=== PATIENT | female | born 1990 | race Caucasian/White ===

== ENCOUNTER 2016-11-21 11:34 | Inpatient (IN) ==
[2016-11-21 11:58] LABS: Bilirubin,Urine Negative (Negative); Blood,Urine Negative (Negative); Clarity,Urine Clear (Clear); Color,Urine Yellow (Yellow); Glucose,Urine (UA) Normal (Normal); Ketones,Urine Negative (Negative); Leukocyte Esterase,Urine Negative (Negative); Nitrite,Urine Negative (Negative); Protein,Urine Negative (Neg-Trace); Specific Gravity,Urine 1.015 (1.010-1.025); Urobilinogen,Urine Normal (Normal)
[2016-11-21 12:03] LABS: Amphetamine Screen,Urine Negative ng/mL (Cutoff=1000); Barbiturate Screen,Urine Negative ng/mL (Cutoff=200); Benzodiazepines Screen,Urine Negative ng/mL (Cutoff=200); Cannabinoid Screen,Urine Negative ng/mL (Cutoff = 50); Cocaine Screen,Urine Negative ng/mL (Cutoff= 300); Opiate Screen,Urine Negative ng/mL (Cutoff=300); Phencyclidine Screen,Urine Negative ng/mL (Cutoff=25)
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
[2016-11-21 12:19] LABS: Acetaminophen < 1.0 mcg/mL (10-30); Ethanol < 10 mg/dL (0-10); Salicylate < 5.0 mg/dL (15-30)
[2016-11-21] MEDS ORDERED: Haloperidol Lactate 5 MG/ML VIAL IM PRN (20:58)
[2016-11-21] MEDS ORDERED: MOM Conc 10 ML UD.LIQ PO PRN (20:58)
[2016-11-21] MEDS ORDERED: *HR* LORazepam 2 MG/ML VIAL IM PRN (20:58)
[2016-11-21] MEDS ORDERED: *HR* LORazepam 1 MG TABLET PO PRN (20:58)
[2016-11-21] MEDS ORDERED: Mag Hydrox/Al Hydrox/Simeth 30 ML UDC PO PRN (20:58)
[2016-11-21] MEDS ORDERED: hydrOXYzine pamoate 25 MG CAPSULE PO PRN (20:58)
[2016-11-21] MEDS: Nicotine 21 MG PATCH.TD24 TD SCH (21:57)
[2016-11-21] MEDS: traZODone 50 MG TABLET PO PRN (21:57)
[2016-11-22] MEDS: Nicotine 21 MG PATCH.TD24 TD SCH (09:08)
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
[2016-11-22] MEDS: Ibuprofen 400 MG TABLET PO PRN (21:02)
[2016-11-22] MEDS: traZODone 50 MG TABLET PO PRN (21:03)
[2016-11-23] MEDS: Nicotine 21 MG PATCH.TD24 TD SCH (09:03)
--- NOTE | 2016-11-23 16:16 | Psychiatry Progress Note ---
Date of Encounter: 11/23/16 Time of Encounter: 14:20 Subjective Interval history: Patient is here for follow-up. She is feeling better and tolerating medication without any side effects. She has good insights and determined to have her treatment and medication established before discharge. I discussed with her that starting more stabilizer can be done after taken the antidepressant for couple days she is agreeable with plan. Review of Systems Psychiatric: Reports: suicidal ideation, homicidal ideation, irritability, mood swings Objective: Exam Patient orientation: Yes Person, Yes Time, Yes Place Level of alertness: Alert Patient appearance: Appropriate, Well Groomed Behavior: calm, cooperative Psychomotor activity: Normal Eye contact: Maintains Eye Contact Mood description: Euthymic/stable, Anxious Affect description: congruent with mood, full range, constricted Speech pattern: Normal rate, Normal rhythm, Normal tone Speech volume: Normal Thought process: Linear, Goal Oriented Thought content: No Suicidal ideation, No Homicidal ideation, No Overt delusions Perceptual disturbances: No Auditory hallucinations, No Visual hallucinations Judgment: Fair Insight: Partial Results - Vital Signs Vital Signs: Temp Pulse Resp BP Pulse Ox 98.3 F 67 16 118/71 99 11/23/16 08:43 11/23/16 08:43 11/23/16 08:43 11/23/16 08:43 11/21/16 15:42 Assessment and Plan (1) Persistent mood [affective] disorder, unspecified Current visit: Yes Status: Acute Risks, benefits, side effects, alternatives discussed w/pt: Yes Patient agreeable to treatment: Yes Consult Discharge Plan - Plan Referrals: [facility] [Outside] - 12/11/16 11:20 am (The above appointment is with psychiatric prescriber, Dr. Armas. Please arrive 30 minutes early for this appointment to complete paperwork. This is the first available appointment. You may contact the office regularly to check for cancellations that may allow you to be seen sooner. Office staff will contact you directly to schedule your intake appointment for counseling/case management services. )
[2016-11-23] MEDS: traZODone 50 MG TABLET PO PRN (20:24)
[2016-11-23] MEDS: Ibuprofen 400 MG TABLET PO PRN (20:27)
[2016-11-24] MEDS: Nicotine 21 MG PATCH.TD24 TD SCH (08:33)
[2016-11-24] MEDS: Ibuprofen 400 MG TABLET PO PRN (08:58)
[2016-11-24 15:04] VITALS: BP 115/57
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
== END 2016-11-24 16:18 | disposition home or self-care (01) | DRG 881 ==
LOC: EMEROO 11:34 → 1ANU 18:11 → SUATTDRO 18:11 → 1ANU 18:38
PROVIDERS: ADMIT Psychiatry & Neurology Psychiatry; ATTEND Psychiatry & Neurology Psychiatry